=== PATIENT | female | born 1980 | race African-American/Black ===

== ENCOUNTER → 2016-08-22 | Outpatient (REF) | payer SELFPAY | LOC: M LAB LCGH 13:12 | DX: R89.1 Abnormal level of hormones in specimens from other organs, systems and tissues (principal) ==

== ENCOUNTER → 2016-09-01 | Outpatient (CLI) | payer BC ==
--- NOTE | 2016-09-01 14:43 | REP ---
Hysterosalpingogram: History: Infertility. History of prior myomectomy. Procedure: Endometrial catheter is placed by the referring technical testing engineer. Fluoroscopic guidance and intermittent spot filming was provided. 1 minute 22 seconds of fluoroscopy time is utilized. Nine spot radiographs are presented. Findings: A small quantity of air is injected. The endometrial cavity is otherwise unremarkable. It is normal in shape and smooth in contour. The isthmic and ampullary segments of the fallopian tubes opacify symmetrically. The right fallopian tube demonstrates patency sooner so than the left. Ultimately peritoneal spillage is confirmed on the left as well. Post drainage view shows no endometrial abnormality. Impression: Bilateral tubal patency is documented. No endometrial abnormality. Signed by Prakash Jefferson MD 09/01/2016 03:42 P
== END ==
LOC: M RADPRO 12:58
PROVIDERS: ATTEND Obstetrics & Gynecology
DX: N97.9 Female infertility, unspecified (principal)

== ENCOUNTER → 2016-09-01 | Outpatient (CLI) | payer BC ==
[~2016-09-01] MED LIST: ISOVUE-370 76% 100ML VIAL (Q9967) As Ordered ONE
--- NOTE | 2016-09-01 16:11 | REPMRS ---
Patient History The patient states she had a clinical breast exam in 08/31.Patient is nulliparous. Family history of prostate cancer in father at age 60 and breast cancer in paternal aunt at age 50. Digital Mammo Screening Bilat: September 01, 2016 - Exam #: [id number] Bilateral CC and MLO view(s) were taken. Technologist: Ivelisse Martinez, Technologist No prior studies available for comparison. FINDINGS: There are scattered fibroglandular densities. There is no evidence of dominant mass, architectural distortion, or clustered microcalcification typical of malignancy. ASSESSMENT: BI-RADS/ACR category 1 mammogram. Negative. Recommendation Routine screening mammogram of both breasts in 1 year (for women over age 40). This mammogram was interpreted with the aid of an FDA-approved computer-aided dectection system. Electronically Signed By: Tom Jefferson MD 09/01/16 [id number]
== END ==
LOC: M RAD 13:03
DX: Z12.31 Encounter for screening mammogram for malignant neoplasm of breast (principal); Z80.3 Family history of malignant neoplasm of breast; Z80.42 Family history of malignant neoplasm of prostate
CPT/HCPCS: G0202; Q9967

== ENCOUNTER → 2016-09-25 | Outpatient (REF) | payer BC | LOC: M LAB REF 16:50 | PROVIDERS: ATTEND Advanced Practice Midwife | DX: N97.8 Female infertility of other origin (principal) ==

== ENCOUNTER → 2016-09-28 | Outpatient (REF) | payer BC ==
[2016-09-30 00:06] LABS: Candida species Negative (Negative); Gardnerella vaginalis Negative (Negative); Trichamonas vaginalis Negative (Negative)
== END ==
LOC: M LAB REF 12:48
PROVIDERS: ATTEND Advanced Practice Midwife
DX: N76.1 Subacute and chronic vaginitis (principal)

== ENCOUNTER → 2016-10-19 | Outpatient (CLI) | payer BC ==
[2016-10-19 13:24] LABS: ESTRADIOL 2545.8 PG/ML; PROGESTERONE < 0.2 NG/ML
== END ==
LOC: M SMT 11:26
PROVIDERS: ATTEND Obstetrics & Gynecology
DX: N97.8 Female infertility of other origin (principal)

== ENCOUNTER → 2016-11-21 | Outpatient (REF) | LOC: M LAB LCGH 15:57 | PROVIDERS: ATTEND Obstetrics & Gynecology Reproductive Endocrinology | DX: Z13.0 Encounter for screening for diseases of the blood and blood-forming organs and certain disorders involving the immune mechanism (principal) ==

== ENCOUNTER → 2016-11-22 | Outpatient (REF) | LOC: M LAB LCGH 15:59 | PROVIDERS: ATTEND Obstetrics & Gynecology Reproductive Endocrinology | DX: R89.1 Abnormal level of hormones in specimens from other organs, systems and tissues (principal) ==